=== PATIENT | female | born 1975 | race Caucasian/White ===

== ENCOUNTER → 2017-03-24 | Outpatient (CLI) | payer BC ==
[~2017-03-24] MED LIST: ATOR40TA PO; FISH1CAP2 PO; ONDA4TAB4 PO; UBID100C10 PO
--- NOTE | 2017-03-24 16:23 | DI ---
Indication: ITS.REASON: R22.0 FACIAL SWELLING; J32.9 SINUSITIS PROCEDURE: CT SINUSES W/O CONTRAST: Encounter: Initial Comparison: None Technique: Axial CT images were performed through the sinuses without intravenous contrast. Coronal and sagittal two-dimensional reformats. Findings: There is prominent mucosal thickening throughout the inferior left maxillary sinus with minimal thickening inferior in the right maxillary sinus. There is no obvious air-fluid levels, bony expansion or erosion. The infundibulum is patent bilaterally. Lamina papyracea is intact. The visualized mastoid air cells are well aerated. Impression: Mild mucoperiosteal thickening inferiorly in both maxillary sinuses, worse on the left as described. No air-fluid levels or bony erosion. .
== END ==
LOC: IMA 15:21
PROVIDERS: ATTEND Nurse Practitioner
DX: J34.89 Other specified disorders of nose and nasal sinuses (principal); J32.9 Chronic sinusitis, unspecified; R22.0 Localized swelling, mass and lump, head